=== PATIENT | male | born 1985 ===

== ENCOUNTER 2016-07-06 14:12 | Emergency (ER) | payer MEDICAID ==
[2016-07-06 14:22] VITALS: BP 158/78; PULSE 69; RESP 14; TEMP 98.3; O2SAT 98
--- NOTE | 2016-07-06 14:39 | ED PDOC ---
HPI: Eye Injury/Pain Time Seen by Provider: 07/06/16 14:20 Chief Complaint (Nursing): Eye Problem Chief Complaint (Provider): eye problem History Per: Patient History/Exam Limitations: no limitations Onset/Duration Of Symptoms: Days (x 2) Current Symptoms Are (Timing): Still Present Injury To Eye?: No Severity: None Wears Contact Lens?: No Associated Symptoms: Itching, Discharge From Eye. denies: FB Sensation Additional Complaint(s): Antonio Anders is a 31 year old male, with a previous medical history of asthma and hypertension, who presents to the ED with complaints of itchy eyes accompanied by blurred vision, redness and "mucus" discharge in the morning ongoing for the past 2 days. Patient reports symptoms are consistent with allergy symptoms presented in the past however he is concerned due to coming in contact with his friend 2 days ago prior to symptoms onset who presented with a red eye. Patient denies any trauma or use of contacts. PMD: none provided Past Medical History Reviewed: Historical Data, Nursing Documentation, Vital Signs Vital Signs: Last Vital Signs Temp 98.3 F 07/06/16 14:20 Pulse 69 07/06/16 14:20 Resp 14 07/06/16 14:20 BP 158/78 H 07/06/16 14:20 Pulse Ox 98 07/06/16 14:20 - Medical History PMH: Asthma (childhood), HTN - Surgical History Surgical History: Cholecystectomy - Family History Family History: States: Unknown Family Hx - Home Medications Home Medications: Ambulatory Orders Medication Instructions Recorded Ondansetron [Zofran] 4 mg PO Q6H PRN #10 tab 02/11/14 Ranitidine HCl [Zantac 150] 150 mg PO BID #20 tab 02/11/14 Sulfamethoxazole/Trimethoprim 1 tab PO BID #14 tab 06/05/15 [Bactrim DS 800 mg-160 mg] Ciprofloxacin 0.3% [Ciloxan 0.3% 1 drop BOTHEYES QID #1 bottle 07/06/16 Ophth SOLN] Olopatadine 0.1% Opht [Patanol 5 1 drop BOTHEYES BID #1 bottle 07/06/16 Ml] - Allergies Allergies/Adverse Reactions: Allergies Allergy/AdvReac Type Severity Reaction Status Date / Time SEAFOOD Allergy RASH Uncoded 06/05/15 17:06 Review of Systems ROS Statement: Except As Marked, All Systems Reviewed And Found Negative Eyes: Positive for: Vision Change, Redness, Other (discharge and itching ) Physical Exam - Reviewed Nursing Documentation Reviewed: Yes Vital Signs Reviewed: Yes - Physical Exam Appears: Positive for: Well, Non-toxic, No Acute Distress Eye Exam: Positive for: Conjunctival injection (mild bilaterally ), Other (eyes appear watery with no purulent drainage noted. No fluoriscein uptake. Visual acuity right eye 20/15, Left eye 20/20 and both eyes 20/20) Neurologic/Psych: Positive for: Alert, Oriented - ECG O2 Sat by Pulse Oximetry: 98 (RA) Pulse Ox Interpretation: Normal Medical Decision Making Medical Decision Making: Initial Impression: Eye problem Initial Plan: * visual acuity * fluorescein eye stain * reevaluation Scribe Attestation: Documented by Joanne Eden, acting as a scribe for Rachelle Johnston PA-C. Provider Scribe Attestation: All medical record entries made by the Scribe were at my direction and personally dictated by me. I have reviewed the chart and agree that the record accurately reflects my personal performance of the history, physical exam, medical decision making, and the department course for this patient. I have also personally directed, reviewed, and agree with the discharge instructions and disposition. Disposition - Clinical Impression Clinical Impression: Conjunctivitis - Patient ED Disposition Is Patient to be Admitted: No - Disposition Referrals: Arnulfo Ching MD [Staff Provider] - Disposition: Routine/Home Disposition Time: 14:40 Condition: FAIR Prescriptions: Ciprofloxacin 0.3% [Ciloxan 0.3% Ophth SOLN] 1 drop BOTHEYES QID #1 bottle Olopatadine 0.1% Opht [Patanol 5 Ml] 1 drop BOTHEYES BID #1 bottle Instructions: Conjunctivitis (ED)
== END 2016-07-06 14:38 | disposition home or self-care (01) ==
LOC: H.ER 14:12
DX: H10.9 Unspecified conjunctivitis (principal)